=== PATIENT | female | born 1975 | race Hispanic/Latino ===

== ENCOUNTER 2020-04-22 07:32 | Outpatient (CLI) | payer OTHER ==
[2020-04-22 11:59] LABS: BHCG - Serum Negative (NEGATIVE)
[2020-04-22 12:00] LABS: Pregs Control Background? CLEAR/WHITE (CLR/WHITE); Pregs Control Bar Appear? YES (CONTROL BAR)
[2020-04-22 13:19] LABS: #Eosinphils 0.2 thou/uL (0.0-0.7); #Lymphocytes 1.3 thou/uL (1.20-3.40); #Monocytes 0.4 thou/uL (0.11-0.59); #Neutrophils 1.9 thou/uL (1.40-6.50); %Basophils 0.7 % (0.0-1.0); %Eosinophils 4.7 % (0.0-10.0); %Lymphocytes 34.2 % (21.0-51.0); %Monocytes 10.4 % (0.0-10.0); Anisocytosis MODERATE=16-30 cells (100X) (0-5/hpf); Hemoglobin 15.2 g/dL (12.0-16.0); MDiff Complete? YES; Mean Corpuscular HGB CONC 31.2 g/dL (32.0-36.0); Mean Corpuscular Hemoglobin 28.5 pg (27.0-31.0); Mean Corpuscular Volume 91.3 fL (78.0-98.0); Mean Platelet Volume 8.4 fL (7.4-10.4); Ovalocytes SLIGHT = 2-5 cells (100X) (0-1/hpf); Platelet Count 186 thou/uL (130-400); Platelet Morphology Comment Appears Adequate; Polychromasia SLIGHT = 2-3 cells (100X) (0-2/hpf); RBC Distribution Width 22.5 % (11.5-14.5); Red Blood Cell (RBC) Count 5.34 mill/uL (4.20-5.40); Target Cells SLIGHT = 2-5 cells (100X) (0-1/hpf); White Blood Cell (WBC) Count 3.7 thou/uL (4.8-10.8)
[2020-04-22 17:13] LABS: SARS-CoV-2 MS2 Positive; SARS-CoV-2 N Gene Positive; SARS-CoV-2 S Gene Negative; SARS-CoV-2 by NAA DETECTED (NotDetected); SARS-CoV-2 orf1ab Positive
== END 2020-04-22 07:33 | disposition home or self-care (01) ==
LOC: LABBT 07:32
PROVIDERS: ATTEND Student in an Organized Health Care Education/Training Program
DX: U07.1 COVID-19 (principal); Z01.812 Encounter for preprocedural laboratory examination; Z20.828 Contact with and (suspected) exposure to other viral communicable diseases; R19.00 Intra-abdominal and pelvic swelling, mass and lump, unspecified site
CPT/HCPCS: 84703; 86850; 86900; 86901; 87635; U0003

== ENCOUNTER 2020-05-16 07:48 | Emergency (ER) | payer OTHER, SELFPAY ==
[2020-05-16] MEDS ORDERED: Morphine 4 MG/ML VIAL ONE (08:24)
[2020-05-16] MEDS ORDERED: Ondansetron PF 4 MG/2 ML Vial ONE (08:24)
[2020-05-16 08:42] LABS: BHCG - Serum Negative (NEGATIVE); Pregs Control Background? CLEAR/WHITE (CLR/WHITE); Pregs Control Bar Appear? YES (CONTROL BAR)
[2020-05-16 08:54] LABS: #Eosinphils 0.5 thou/uL (0.0-0.7); #Lymphocytes 1.4 thou/uL (1.20-3.40); #Monocytes 0.4 thou/uL (0.11-0.59); %Basophils 0.4 % (0.0-1.0); %Eosinophils 10.7 % (0.0-10.0); %Lymphocytes 32.2 % (21.0-51.0); %Monocytes 10.1 % (0.0-10.0); %Neutrophils 46.6 % (42.0-75.0); Anisocytosis SLIGHT = 6-15 cells (100X) (0-5/hpf); Hemoglobin 15.9 g/dL (12.0-16.0); MDiff Complete? YES; Mean Corpuscular Hemoglobin 30.8 pg (27.0-31.0); Mean Corpuscular Volume 93.4 fL (78.0-98.0); Mean Platelet Volume 6.8 fL (7.4-10.4); Platelet Count 150 thou/uL (130-400); Poikilocytosis SLIGHT = 6-15 cells (100X) (0-5/hpf); RBC Distribution Width 15.3 % (11.5-14.5); Red Blood Cell (RBC) Count 5.16 mill/uL (4.20-5.40); White Blood Cell (WBC) Count 4.4 thou/uL (4.8-10.8)
[2020-05-16 08:55] LABS: ALT (SGPT) 15 U/L (8-55); AST (SGOT) 18 U/L (5-34); Albumin 3.9 g/dL (3.5-5.0); Alkaline Phosphatase 55 U/L (40-110); Anion Gap 11 mmol/L (10-20); BUN (Urea Nitrogen) 10 mg/dL (7.0-18.7); Bilirubin, Total 0.7 mg/dL (0.2-1.2); Calc. Creatinine Clearance 0 mL/min (70-130); Calcium 8.6 mg/dL (7.8-10.44); Carbon Dioxide 23 mmol/L (22-29); Chloride 107 mmol/L (98-107); Estimated GFR-MDRD Greater than 90; Globulin 3.1 g/dL (2.4-3.5); Glucose 99 mg/dL (70-105); Lipase 28 U/L (8-78); Potassium 3.5 mmol/L (3.5-5.1); Sodium 137 mmol/L (136-145)
--- NOTE | 2020-05-16 09:26 | CT ---
CT ABDOMEN WITH CONTRAST CT PELVIS WITH CONTRAST: DATE: 05/16/2020 HISTORY: 45-year-old female with abdominal distention and pain COMPARISON: None available TECHNIQUE: IV injection of iodinated contrast media: administered. Oral contrast media:Not administered FINDINGS: There is a huge mass occupying the majority of the volume of the abdominal cavity and upper pelvis, m easuring approximately 24 cm craniocaudal x 20.5 cm transverse x 14.5 cm AP. It displaces the kidneys, pancreas, liver, and spleen, as well as the urinary bladder. It has very heterogeneous, mixe d attenuation and enhancement, including hypoechoic, intermediate density, and slightly high density regions. Other than the displacement, no abnormality is identified involving kidneys, abdominal aorta, pancrea s, adrenals, liver, or spleen. No small bowel dilation. There is a small amount of free fluid around the mass. Between the lateral edge of the mass and the medial surface of the ascending colon, there is a vertic ally oriented tubular structure with high density material in the lumen probably representing the appendix. Although it is thickened to a caliber of up to 10 mm, there is a small amount of gas in the lumen. There is no mural thickening or periappendiceal edema. Therefore, there is no convincing evidence of acute appendicitis. There is a large volume of stool throughout the colon. Minimal amount of free fluid in the pelvic cavity. The huge intra-abdominal Mass. Makes it difficult to evaluate for colonic diverticulitis. Lung bases are grossly clear. No significant osseous abnormality. IMPRESSION: 1) huge intra-abdominal and intrapelvic complex mass displacing abdominal and pelvic organs. This cou ld either represent multiple huge uterine leiomyomata (fibroids) or huge ovarian carcinoma. 2) questionable small amount of free fluid around the tumor. 3) no other acute findings.
[2020-05-16] MEDS ORDERED: Iopamidol-370 76% 500 ML 1 ML ONE (13:34)
[2020-05-16 16:15] LABS: SARS-CoV-2 MS2 Positive; SARS-CoV-2 N Gene Negative; SARS-CoV-2 S Gene Negative; SARS-CoV-2 by NAA Not Detected (NotDetected); SARS-CoV-2 orf1ab Negative
== END 2020-05-16 10:20 | disposition home or self-care (01) ==
LOC: ERS 07:48
DX: R19.00 Intra-abdominal and pelvic swelling, mass and lump, unspecified site (principal); Z79.899 Other long term (current) drug therapy; D64.9 Anemia, unspecified
CPT/HCPCS: 74177; 80053; 83690; 84703; 85025; 87635; 96374; 96375; J2270; J2405; Q9967; U0003

== ENCOUNTER 2020-05-25 10:45 | Inpatient (IN) | payer OTHER ==
[2020-05-24 08:28] VITALS: BMI 19.5
[~2020-05-25 10:45] MED LIST: Glycopyrrolate 0.2 MG/ML 5 ML SYRINGE ONE; Ketorolac Tromethamine 30 MG/ML VIAL ONE; Lidocaine 1% PF 5 ML VIAL ONE; Metoclopramide HCl 10 MG/2 ML VIAL ONE; Ondansetron PF 4 MG/2 ML Vial ONE; PROPOFOL 200 MG/20 ML VIAL ONE; Rocuronium Bromide 10 MG/ML (10ML VIAL) ONE
[2020-05-25] MEDS ORDERED: CeleCOXIB 100 MG CAP ONE (11:52)
[2020-05-25] MEDS ORDERED: Gabapentin 300 MG CAP ONE (11:52)
[2020-05-25] MEDS ORDERED: Famotidine/PF 20 mg/2ml Vial ONE ×2 (11:53→14:41)
[2020-05-25] MEDS ORDERED: Bupivacaine/Epinephrine 0.25% 30 ML VIAL ONE ×2 (14:39→16:11)
[2020-05-25] MEDS ORDERED: SUGAMMADEX SODIUM 200 MG/2 ML VIAL ONE (14:41)
[2020-05-25] MEDS ORDERED: Fentanyl 100 MCG/2 ML VIAL ONE (14:41)
[2020-05-25] MEDS ORDERED: Phenylephrine 10 MG/ML VIAL ONE (14:41)
[2020-05-25] MEDS ORDERED: HYDROmorphone 0.5 MG/0.5 ML SYRINGE ONE (15:54)
[2020-05-25] MEDS ORDERED: HYDROmorphone 10 mg/100 ml CADD IVPB PRN ×2 (15:58→16:16)
[2020-05-25] MEDS ORDERED: Promethazine HCl 25 MG/ML VIAL IM PRN ×3 (15:58→18:44)
[2020-05-25] MEDS ORDERED: Zolpidem Tartrate 5 MG TAB PO PRN ×2 (15:58→18:44)
[2020-05-25] MEDS ORDERED: Ondansetron HCl/PF 4 MG/2 ML Vial IVP PRN (15:58)
[2020-05-25] MEDS ORDERED: Ondansetron PF 4 MG/2 ML Vial IVP PRN ×2 (15:58→18:44)
[2020-05-25] MEDS ORDERED: HYDROmorphone 2 MG/ML VIAL SLOW IVP PRN (15:58)
[2020-05-25] MEDS ORDERED: diphenhydrAMINE 50 MG/ML VIAL IM PRN (15:58)
[2020-05-25] MEDS ORDERED: diphenhydrAMINE 25 MG CAP PO PRN (15:58)
[2020-05-25] MEDS ORDERED: diphenhydrAMINE 50 MG/ML VIAL IVP PRN (15:58)
[2020-05-25] MEDS ORDERED: Naloxone HCl 0.4 mg/ml Vial IV PRN (15:58)
[2020-05-25] MEDS ORDERED: PACU-Morphine 4MG/ML VIAL SLOW IVP PRN (15:58)
[2020-05-25] MEDS ORDERED: Promethazine HCl 25 MG/ML VIAL SLOW IVP PRN (15:58)
[2020-05-25] MEDS ORDERED: Communication Order-Pharmacy FS SCH (16:00)
[2020-05-25] MEDS ORDERED: Bisacodyl 10 MG SUPP PR PRN (18:44)
[2020-05-25] MEDS ORDERED: Simethicone Chewable 80 MG TAB PO PRN (18:44)
[2020-05-25] MEDS: Ketorolac Tromethamine 30 MG/ML VIAL IVP SCH (21:57)
[2020-05-25] MEDS: Sodium Chloride 0.9% 1,000 ML IV SCH (23:54)
[2020-05-26] MEDS: Ketorolac Tromethamine 30 MG/ML VIAL IVP SCH (03:33)
[2020-05-26] MEDS: Sodium Chloride 0.9% 1,000 ML IV SCH ×3 (03:36→11:56)
[2020-05-26 05:22] LABS: Hemoglobin 12.9 g/dL (12.0-16.0); Mean Corpuscular HGB CONC 32.7 g/dL (32.0-36.0); Mean Corpuscular Hemoglobin 30.5 pg (27.0-31.0); Mean Corpuscular Volume 93.2 fL (78.0-98.0); Mean Platelet Volume 12.2 fL (7.4-10.4); Platelet Count 148 thou/uL (130-400); RBC Distribution Width 11.6 % (11.5-14.5); Red Blood Cell (RBC) Count 4.23 mill/uL (4.20-5.40); White Blood Cell (WBC) Count 8.7 thou/uL (4.8-10.8)
--- NOTE | 2020-05-26 08:08 | PDOC.EVN ---
Event Note - Event Note Event Note: POD1 S: O: Tmax 100.3 VSS NAD
[2020-05-26] MEDS: HYDROcodone/Acetaminophen 5/325 mg Tablet PO PRN ×3 (09:08→18:14)
[2020-05-26] MEDS: Docusate Calcium (SURFAK) 240 MG CAP PO SCH ×2 (09:08→22:00)
[2020-05-26] MEDS: Ibuprofen 800 MG TAB PO SCH ×2 (13:26→22:00)
[2020-05-27] MEDS: HYDROcodone/Acetaminophen 5/325 mg Tablet PO PRN ×3 (01:49→14:47)
[2020-05-27] MEDS: Ibuprofen 800 MG TAB PO SCH ×2 (06:28→14:47)
[2020-05-27] MEDS: Sodium Chloride 0.9% 1,000 ML IV SCH ×2 (07:42→14:45)
--- NOTE | 2020-05-27 08:18 | PDOC.EVN ---
Event Note - Event Note Event Note: POD2 S: No complaints, doing well, pain controlled O:
[2020-05-27] MEDS: Docusate Calcium (SURFAK) 240 MG CAP PO SCH (09:22)
--- NOTE | 2020-05-27 10:01 | OP ---
DATE OF PROCEDURE: 05/25/2020 PREOPERATIVE DIAGNOSES: 1. Large abdominopelvic mass. 2. Abdominopelvic pain. POSTOPERATIVE DIAGNOSIS: Large multi-fibroid uterus. PROCEDURES PERFORMED: Total abdominal hysterectomy, right salpingo-oophorectomy. ANESTHESIA: General endotracheal. SPEECH LANGUAGE PATHOLOGY ASSISTANT SURGEON: Dr. Vipul Kiser. ESTIMATED BLOOD LOSS: 100 mL. IVF: 800 mL crystalloid. URINE OUTPUT: 200 mL clear urine. COMPLICATIONS: None. DRAINS: Tai catheter. PATHOLOGY: Uterus, cervix, right fallopian tube and ovary. OPERATIVE INDICATION: A 45-year-old, presented to my office as an ER followup with a large abdominopelvic mass, approximately 28 cm. It was felt to be adnexal versus uterine in origin. The patient had been seen in the ER previously and had a normal CA-125. She was dispositioned for removal with RSO versus HUNTER. After the patient was diagnosed with this large mass back in February, the patient was scheduled for surgery, however, returned back positive for COVID-19. She was asymptomatic at that time. Her surgery was then delayed for several weeks following that. She did at one point present to the ER for worsening pain and the mass had appeared to be slightly larger than initially found at 17 cm, now measuring about [address] of the abdomen. Initially based on CT findings in February, the mass appeared off the right adnexa and that the mass was deviating the uterus to the left. DESCRIPTION OF PROCEDURE: The patient was taken to the operating room, where general anesthesia was obtained without difficulty. The patient was prepped and draped in a sterile fashion in dorsal supine position. A midline incision was made in the lower abdomen and extended to the umbilicus with a knife. The subcutaneous tissue was incised with the knife and the fascia was also incised. The fascia was very thin and somewhat shreddy due to the mass effect on the fascia, and once the fascia had been incised, it started to tear in the cephalad and caudad directions. It was carefully then incised with the Bush scissors. The peritoneum was incised as well. The rectus sheath was intact and this was grasped with two hemostats and entered into sharply with the Metzenbaum and extended with the Metzenbaum. The mass was immediately apparent. It was a cystic appearing and smooth. Once the incision had been completely opened, the mass was attempted to be delivered, however, was unable due to the size. Therefore, the incision was extended just above the umbilicus with a knife. The mass was then able to be delivered through the abdominal incision and at that time, it was noted that the mass was multiple fibroids with the appearance of cystic degeneration. The ovaries were located and identified and were normal bilaterally. The right ovary was fused onto the multi-fibroid uterus and was not salvageable. Therefore, decision was made to proceed with a hysterectomy and right salpingo-oophorectomy. The round ligament on the left side was suture ligated with 0 Vicryl. The medial portion of the round ligament was clamped with a long Rosa. The round ligament was incised with a Bovie. A window was made in the utero-ovarian on the left side and the utero-ovarian was doubly clamped with Maylin clamps. The pedicle was cut with Bush scissors. The ovary side was then doubly ligated with 0 Vicryl. The peritoneum was incised with the Bovie down to the bladder flap. The posterior peritoneum was also incised. A lot of this incision in skeletonizing the lateral side of the uterus was performed by just lifting up from the right side on the uterus and that the tissue was very edematous and easily just apart with traction placed on it. The vessels were skeletonized on the left side with the Bovie and the internal cervical os was easily identified. The ureter was also noted laterally by palpation and the uterine was then clamped with a Maylin clamp and back clamped with the Lizzie, and the pedicle was cut with Mayos and ligated with 0 Vicryl. A straight Delores was performed on the lateral side of the left side as well and this was cut with scissors and ligated with 0 Vicryl. Attention was turned to the left side, where the left round ligament was suture ligated with 0 Vicryl and then incised with the Bovie. A window was made in the IP ligament and this was doubly clamped with Maylin clamps. Mayos were used to cut the pedicle and the IP was doubly ligated with 0 Vicryl. The posterior peritoneum was dropped down. This side was more bulky into the pelvic sidewall and at the anterior leaf of the broad ligament was dropped down. The bladder flap was created and carefully dissected down below the level of the cervix with the Bovie as well as bluntly. The uterines were then skeletonized on that side. At one point, there were some accessory vessels feeding into the uterus. This was doubly clamped with Maylin clamps and ligated. Due to the bulkiness, the ureter was identified. It was noted to be crossing underneath the uterine vessel very close to where the pedicle was. Therefore, this was carefully dissected away from that point where the uterine vessels came up at the level of the internal cervical os, and after carefully dissecting it away, with Metzenbaums, the uterine pedicle was clamped with Maylin clamps, incised, and then suture ligated. Straight Ballentines were performed on the cervix and the cervix was very short. The Maylin clamps were used to come across the vaginal cuff at the level of the external cervical os and a Hofmeister suture was placed at the cuff apex and the remainder of the cuff was closed with 0 Vicryl [id number] sutures. Irrigation was performed of the pelvis and suctioned. Hemostasis was noted. FloSeal was placed on the vaginal cuff and the uterine pedicles and all sutures were removed. The ureters were then again palpated down the length of the pelvis and noted to be free of any injury. The urine was noted to be clear and the laparotomy sponges were removed out of the abdomen from previously packing away the bowel. The Onur O retractor was removed. The fascia was then marked with Lizzie clamps and the fascia was closed in a Smead-Culver en hernan closure in a running fashion with an 0 PDS looped suture. The subcutaneous tissue was irrigated and cauterized of any bleeders. The skin was closed with hermelinda, and a pressure dressing as well as an abdominal binder was applied. The patient tolerated the procedure well. Sponge, lap, and needle counts were correct x2. The patient was taken to recovery room in stable condition. The patient received Ancef 2 g prior to the procedure. Job ID: [id number]
[2020-05-27] MEDS ORDERED: Ondansetron ODT 4 MG TAB PO PRN (10:50)
[2020-05-27] MEDS ORDERED: Ondansetron PF 4 MG/2 ML Vial IVP PRN (10:50)
[2020-05-27 12:04] VITALS: BP 120/61; TEMP 98.4
== END 2020-05-27 16:00 | disposition home or self-care (01) | DRG 743 ==
LOC: SURG A 10:45 → 3SE 18:43
PROVIDERS: ADMIT Student in an Organized Health Care Education/Training Program; ATTEND Student in an Organized Health Care Education/Training Program
PROC: 0UT90ZZ Resection of Uterus, Open Approach (ICD-10-PCS; principal; 2020-05-25)
PROC: 0UB50ZZ Excision of Right Fallopian Tube, Open Approach (ICD-10-PCS; 2020-05-25)
PROC: 0UB10ZZ Excision of Left Ovary, Open Approach (ICD-10-PCS; 2020-05-25)
DX: D25.9 Leiomyoma of uterus, unspecified (principal); Z98.51 Tubal ligation status
CPT/HCPCS: 36415; 85027; 86850; 86900; 86901; 88112; 88305; 88307; 88341; 88342; 88360; J0690; J1170; J1885; J2370; J2405; J2704; J2765; J3010; S0028

== ENCOUNTER 2020-06-09 10:54 | Emergency (ER) | payer SELFPAY | END 2020-06-09 12:21 | disposition home or self-care (01) | LOC: ERS 10:54 | DX: Z48.01 Encounter for change or removal of surgical wound dressing (principal) | CPT/HCPCS: 99282 ==